=== PATIENT | female | born 1965 | race Caucasian/White ===

== ENCOUNTER → 2020-12-13 | Outpatient (CLI) | payer SELFPAY | END | disposition home or self-care (01) | LOC: LAB SHORT 12:37 | DX: L57.0 Actinic keratosis (principal); L11.9 Acantholytic disorder, unspecified | CPT/HCPCS: 88305 ==

== ENCOUNTER → 2022-10-22 | Outpatient (CLI) | payer SELFPAY | LOC: LAB 11:00 → LAB SHORT 11:00 | DX: R30.0 Dysuria (principal) | CPT/HCPCS: 87086 ==